=== PATIENT | female | born 1975 | race Caucasian/White ===

== ENCOUNTER 2016-07-14 20:12 | Emergency (ER) | payer SELFPAY ==
[2016-07-15] MEDS ORDERED: HYDROCODONE/ACETAMINOPHEN 5-325 MG 6 TAB/DSPK PO PRN (00:11)
--- NOTE | 2016-07-15 00:16 | ER Document Report ---
ED Extremity Problem, Upper - General Chief Complaint: Shoulder Pain Stated Complaint: SHOULDER PAIN,LEFT HAND NUMBNESS Time seen by provider: 00:10 Notes: Patient is a 40-year-old left-handed female that comes emergency department for chief complaint of pain in the left shoulder in her upper back behind her shoulder since yesterday, she also states that she gets tingling sensation in the first second and third digits of her left hand intermittently with some pains along her arm. She denies any chest pain, shortness of breath, she denies any impact injury, however she states that she lifts heavy boxes at work on occasion and has done so over the past 6 days. Patient denies any daily medications, she states that ibuprofen did help earlier today but wore off before her shift was done. TRAVEL OUTSIDE OF THE [place] IN LAST 30 DAYS: No - Related Data Allergies/Adverse Reactions: No Known Allergies Allergy (Verified 07/10/16 15:29) Past Medical History - General Information source: Patient - Social History Smoking Status: Never Smoker Frequency of alcohol use: None Drug Abuse: None Lives with: Family Family History: Reviewed & Not Pertinent, DM, Other - DVT Patient has suicidal ideation: No Patient has homicidal ideation: No - Past Medical History Cardiac Medical History: Reports: Hx DVT, Hx Pulmonary Embolism Neurological Medical History: Denies: Hx Seizures Skin Medical History: Denies Hx Eczema, Denies Hx MRSA Past Surgical History: Reports: Hx Section, Hx Cholecystectomy - Immunizations Hx Diphtheria, Pertussis, Tetanus Vaccination: Yes Review of Systems - Review of Systems Constitutional: No symptoms reported EENT: No symptoms reported Cardiovascular: No symptoms reported Respiratory: No symptoms reported Gastrointestinal: No symptoms reported Genitourinary: No symptoms reported Female Genitourinary: No symptoms reported Musculoskeletal: See HPI Skin: No symptoms reported Hematologic/Lymphatic: No symptoms reported Neurological/Psychological: No symptoms reported Physical Exam - Vital signs Vitals: Temp Pulse Resp BP Pulse Ox 97.8 F 79 14 121/72 97 07/14/16 20:38 07/14/16 20:38 07/14/16 20:38 07/14/16 20:38 07/14/16 20:38 Interpretation: Normal - General General appearance: Appears well, Alert In distress: None - Patient in no distress unless she moves her left shoulder, moves the shoulder with some pain - HEENT Head: Normocephalic, Atraumatic Eyes: Normal Extraocular movements intact: Yes Eyelashes: Normal Pupils: PERRL Mouth/Lips: Normal Mucous membranes: Normal Pharynx: Normal Neck: Normal - Respiratory Respiratory status: No respiratory distress Chest status: Nontender Breath sounds: Normal. No: Decreased air movement, Wheezing Chest palpation: Normal - Cardiovascular Rhythm: Regular Heart sounds: Normal auscultation Murmur: No - Abdominal Inspection: Normal Distension: No distension Bowel sounds: Normal Tenderness: Nontender Organomegaly: No organomegaly - Back Back: Normal, Nontender - Extremities General upper extremity: Other - Tender over the supraspinatus and left trapezius muscles, somewhat limited abduction of the shoulder to about 100 before becomes difficult. Positive Phalen sign in the left hand. Normal examination of the upper extremities otherwise General lower extremity: Normal inspection, Nontender, Normal color, Normal ROM , Normal temperature, Normal weight bearing. No: Rex's sign - Neurological Neuro grossly intact: Yes Cognition: Normal Orientation: AAOx4 [place] Coma Scale Eye Opening: Spontaneous Rm Coma Scale Verbal: Oriented Rm Coma Scale Motor: Obeys Commands Rm Coma Scale Total: 15 Speech: Normal Motor strength normal: LUE, RUE, LLE, RLE Sensory: Normal - Psychological Associated symptoms: Normal affect, Normal mood - Skin Skin Temperature: Warm Skin Moisture: Dry Skin Color: Normal Course - Re-evaluation Re-evalutation: Patient with very specific shoulder tenderness, appears to have slight shoulder impingement on the left side, appears to have trapezius muscle spasm and supraspinatus pain, also appears to have a component of carpal tunnel with positive Phalen sign. Discussed all these findings with patient. Patient declines an x-ray of her shoulder, will treat with naproxen to help her through the workday, Valium for the muscle spasm, referring to orthopedics for additional treatment and management if symptoms persist. Patient states satisfaction and agreement with plan. - Vital Signs Vital signs: Temp Pulse Resp BP Pulse Ox 97.7 F 70 16 113/70 97 07/15/16 00:40 07/15/16 00:40 07/15/16 00:40 07/15/16 00:40 07/15/16 00:40 Discharge - Discharge Clinical Impression: Left shoulder pain Qualifiers: Chronicity: acute Qualified Code(s): M25.512 - Pain in left shoulder Carpal tunnel syndrome Qualifiers: Laterality: left Qualified Code(s): G56.02 - Carpal tunnel syndrome, left upper limb Condition: Stable Disposition: HOME, SELF-CARE Additional Instructions: Your exam is showing shoulder impingement, strain/spasm of the trapezius muscle of the shoulder, and also indicates carpal tunnel syndrome. I recommended icing both your shoulder (at the top of your arm, not on your back ) and wrist 3-4 times a day over the next couple of days, take the naproxen anti -inflammatory, take Valium if needed for your shoulder spasm. Rest. Follow-up with orthopedics if needed for your shoulder/wrist. Return to emergency department for concerning symptoms. Prescriptions: Diazepam [Valium 5 mg Tablet] 1 - 2 tab PO TID PRN #15 tablet PRN Reason: Naproxen 500 mg PO BID #20 tablet Forms: Return to Work Referrals: MISAEL MENDEZ MD [ACTIVE STAFF] - Follow up as needed
[2016-07-15 00:50] VITALS: BP 113/70
== END 2016-07-15 00:51 | disposition home or self-care (01) ==
LOC: ER 20:12
DX: G56.02 Carpal tunnel syndrome, left upper limb (principal); M25.512 Pain in left shoulder; M79.642 Pain in left hand
CPT/HCPCS: 99283

== ENCOUNTER 2017-12-11 20:32 | Emergency (ER) | payer SELFPAY ==
[2017-12-11] MEDS ORDERED: LIDOCAINE 1% INJ-PF (10 MG/ML) 30 ML SDV INJ ONE (21:34)
[2017-12-11] MEDS ORDERED: IBUPROFEN 800 MG TABLET PO ONE (21:42)
[2017-12-11] MEDS ORDERED: DIPH/PERTUSS(ACELL)/TETANUS VAC/PF 0.5 ML SYR (>=10YO) IM ONE (21:43)
--- NOTE | 2017-12-11 21:48 | ER Document Report ---
ED Hand/Wrist Injury - General Chief Complaint: Finger Injury Stated Complaint: FINGER LACERATION Time Seen by Provider: 12/11/17 20:57 Mode of Arrival: Ambulatory Information source: Patient Notes: 42-year-old female presents to ED for complaint of a laceration to the left middle finger. She states the laceration occurred when she was trying to close a pocket knife around 6:00. She states there was a drug safety assistant that lives nearby and he wrapped it in gauze and tape. She is alert and oriented speaking in full sentences, respirations are regular and unlabored. She is walking with a even steady gait. She states her only past medical history is blood clots in her lungs and heart about 7 years ago when she was on blood thinners at that time. She states she has not been on blood thinners in a while. TRAVEL OUTSIDE OF THE [place] IN LAST 30 DAYS: No - HPI Injury to: Middle finger - Left Onset: This afternoon Where: Home, Indoors Timing: Still present Quality of pain: Achy Severity: Mild Pain Level: 2 Context: Laceration - Related Data Allergies/Adverse Reactions: No Known Allergies Allergy (Verified 07/10/16 15:29) Past Medical History - General Information source: Patient - Social History Smoking Status: Current Every Day Smoker Cigarette use (# per day): Yes - Half pack a day Chew tobacco use (# tins/day): No Smoking Education Provided: Yes - 4 minutes Frequency of alcohol use: None Drug Abuse: None Occupation: None Lives with: Other - Lives with her child's father and his girlfriend and children Family History: Reviewed & Not Pertinent, DM, Other - DVT Patient has suicidal ideation: No Patient has homicidal ideation: No - Past Medical History Cardiac Medical History: Reports: Hx Pulmonary Embolism - States she had a pulmonary emboli and a clot in her heart about 7 years ago Pulmonary Medical History: Reports: None EENT Medical History: Reports: None Neurological Medical History: Reports: None Endocrine Medical History: Reports: None Renal/ Medical History: Reports: None Malignancy Medical History: Reports: None GI Medical History: Reports: None Musculoskeltal Medical History: Reports None Skin Medical History: Reports None Psychiatric Medical History: Reports: None Traumatic Medical History: Reports: None Infectious Medical History: Reports: None Past Surgical History: Reports: Hx Section, Hx Cholecystectomy - Immunizations Hx Diphtheria, Pertussis, Tetanus Vaccination: Yes Review of Systems - Review of Systems Constitutional: No symptoms reported EENT: No symptoms reported Cardiovascular: No symptoms reported Respiratory: No symptoms reported Gastrointestinal: No symptoms reported Genitourinary: No symptoms reported Female Genitourinary: No symptoms reported Musculoskeletal: No symptoms reported Skin: Other - laceration left index finger while closing a pocket knife Hematologic/Lymphatic: No symptoms reported Neurological/Psychological: No symptoms reported -: Yes All other systems reviewed and negative Physical Exam - Vital signs Vitals: Temp Pulse Resp BP Pulse Ox 99.0 F 89 20 128/80 H 96 12/11/17 20:40 12/11/17 20:40 12/11/17 20:40 12/11/17 20:40 12/11/17 20:40 Interpretation: Normal - General General appearance: Appears well, Alert - HEENT Head: Normocephalic, Atraumatic Eyes: Normal Pupils: PERRL - Respiratory Respiratory status: No respiratory distress Chest status: Nontender Breath sounds: Normal Chest palpation: Normal - Cardiovascular Rhythm: Regular Heart sounds: Normal auscultation Murmur: No - Abdominal Inspection: Normal Distension: No distension Bowel sounds: Normal Tenderness: Nontender Organomegaly: No organomegaly - Back Back: Normal, Nontender - Extremities General upper extremity: Normal ROM, Normal temperature General lower extremity: Normal inspection, Nontender, Normal color, Normal ROM , Normal temperature, Normal weight bearing. No: Rex's sign Hand: Tender, Laceration - left middle finger, No evidence of human bite, No evidence of FB. No: Abrasion, Deformity, Dislocation, Ecchymosis, Instability, Nail injury, Swelling, Tendon deficit - Neurological Neuro grossly intact: Yes Cognition: Normal Orientation: AAOx4 Rm Coma Scale Eye Opening: Spontaneous [place] Coma Scale Verbal: Oriented Rm Coma Scale Motor: Obeys Commands Rm Coma Scale Total: 15 Speech: Normal Motor strength normal: LUE, RUE, LLE, RLE Sensory: Normal - Psychological Associated symptoms: Normal affect, Normal mood - Skin Skin Temperature: Warm Skin Moisture: Dry Skin Color: Normal Course - Vital Signs Vital signs: Temp Pulse Resp BP Pulse Ox 99.0 F 89 20 128/80 H 96 12/11/17 20:40 12/11/17 20:40 12/11/17 20:40 12/11/17 20:40 12/11/17 20:40 Procedures - Immobilization Left Finger 3rd digit Time completed: 22:15 Pre-Proc Neuro Vasc Exam: Normal Immobilizer type: Finger protection Performed by: PCT Post-Proc Neuro Vasc Exam: Normal Alignment checked and good: Yes - Laceration/Wound Repair Left Finger 3rd digit Time completed: 22:14 Wound length (cm): 1.5 Wound's Depth, Shape: Superficial, Linear Laceration pre-procedure: Sterile PPE donned, Sterile drapes applied Anesthetic type: 1% Lidocaine Volume Anesthetic (mLs): 4 Wound explored: No foreign body removed, Contaminated Irrigated w/ Saline (mLs): 300 Wound Repaired With: Sutures Suture Size/Type: 5:0, Ethilon Number of Sutures: 5 Layer Closure?: No Post-procedure wound care: Sterile dressing applied, Splint applied Post-procedure NV exam normal: Yes Complications: No Discharge - Discharge Clinical Impression: Laceration of left middle finger w/o foreign body w/o damage to nail Qualifiers: Encounter type: initial encounter Qualified Code(s): S61.213A - Laceration without foreign body of left middle finger without damage to nail, initial encounter Condition: Stable Disposition: HOME, SELF-CARE Instructions: Family Physicians / Practices, Use of Otky-Ipv-Gngjlfo Ibuprofen ([facility]) Additional Instructions: Hand Laceration A laceration on the hand can present special problems. It may be difficult to keep the wound dry. Motion of the fingers can disturb the healing edges. Your work may involve exposure to damaging chemicals or water. Keep the wound clean and dry. If you can't keep the cut dry, undisturbed, and free of chemical exposure, please discuss this with the doctor. If any water or chemical gets onto the dressing, remove it, blot the wound dry, then apply a fresh bandage. Dressings should be changed every day. If you feel the stitches pulling as you move the hand, a splint or other form of protection is needed. If any signs of infection occur (swelling, redness, increasing tenderness, red streaks, tender lumps in the armpit, or fever), see the doctor immediately. SOAP CLEANSING: Gently wash the wound daily using a mild soap (like Ivory, Phisoderm, Neutrogena). Use warm water, rubbing gently until all debris, ooze, and crusting have been washed from the wound. Allow to dry briefly (about 10 minutes) after cleaning. Repeat this cleansing at least three times a day for the first two days and then once or twice a day. ANTIBIOTIC OINTMENT PROTECTION: Your wounds are such that dressing them is not practical or optional. After cleansing, you should apply a thin coating of antibiotic ointment ( Bacitracin, not Neosporin) to the wounds at least three times daily. This lessens infection risk, and may decrease the amount of scarring. Use a q-tip or dull butter knife, not your finger, to apply this ointment. Any debris or ooze which builds up in the ointment should be gently rubbed off with a sterile gauze pad. Harder crusting may need to be gently scrubbed off with a clean wash cloth with soap and warm water, perhaps applying a warm, wet wash cloth to the wound for ten minutes first. Development of redness, severe itching, or blistering may mean allergy to the ointment. See the doctor. TETANUS IMMUNIZATION GIVEN: You have been given an immunization against tetanus. Please record this in your records. In general, a booster is needed only once every 10 years. The tetanus shot protects against tetanus or "lockjaw," which is a complication of certain wound infections (the tetanus shot cannot protect against the actual infection). The immunization site may become warm and red due to local reaction. If this occurs, apply warm compresses and take aspirin or ibuprofen to reduce inflammation and discomfort. Return for evaluation if the reaction becomes severe. Acetaminophen Acetaminophen may be taken for pain relief or fever control. It's much safer than aspirin, offering a wider range of "safe" dosages. It is safe during . Some brand names are Tylenol, Panadol, Datril, Anacin 3, Tempra, and Liquiprin. Acetaminophen can be repeated every four hours. The following are maximum recommended dosages: WEIGHT Dose Drops Elixir Chewable( 80mg) (LBS.) drprs=droppers tsp=teaspoon 6 40 mg .4 ml (1/2) 6-11 80 mg .8 ml (full) 1/2 tsp 1 tab 12-16 120 mg 1 1/2 drprs 3/4 tsp 1 1/2 tabs 17-23 160 mg 2 drprs 1 tsp 2 tabs 24-30 240 mg 3 drprs 1 1/2 tsp 3 tabs 30-35 320 mg 2 tsp 4 tabs 36-41 360 mg 2 1/4 tsp 4 1 /2 tabs 42-47 400 mg 2 1/2 tsp 5 tabs 48-53 480 mg 3 tsp 6 tabs 54-59 520 mg 3 1/4 tsp 6 1 /2 tabs 60-64 560 mg 3 1/2 tsp 7 tabs 65-70 600 mg 3 3/4 tsp 7 1 /2 tabs 71-76 640 mg 4 tsp 8 tabs 77-82 720 mg 4 1/2 tsp 9 tabs 83-88 800 mg 5 tsp 10 tabs >89 pounds or adults 650 mg to 900 mg Acetaminophen can be repeated every four hours. Maximum daily dose not to exceed 4000 mg. These maximum recommended dosages are slightly higher than the dosages written on the product container, but these dosages are very safe and well below the toxic dosage for acetaminophen. FOLLOW-UP CARE: Please return in ___3__ days for an infection check and dressing change. Your sutures should be removed in ___9__ days. To facilitate a timely removal of your sutures, you may return to the Emergency Department at [facility]. You do not need to call for an appointment, but the best time to come in for suture removal is early in the morning. If you have been referred to another physician for follow-up care, call that physicians office for an appointment as you were instructed. If you experience a significant change in your laceration, or if you are concerned there may be an infection (swelling, redness, drainage, increasing tenderness, red streaks, tender lumps in the armpit or groin above the laceration, or fever) , return to the Emergency Department immediately re-evaluation. Forms: Elevated Blood Pressure, Smoking Cessation Education
[2017-12-11 22:34] VITALS: BP 108/65
== END 2017-12-11 22:33 | disposition home or self-care (01) ==
LOC: ER 20:32
PROC: 0HQGXZZ Repair Left Hand Skin, External Approach (ICD-10-PCS; principal; 2017-12-11)
DX: S61.213A Laceration without foreign body of left middle finger without damage to nail, initial encounter (principal); W26.0XXA Contact with knife, initial encounter; F17.210 Nicotine dependence, cigarettes, uncomplicated
CPT/HCPCS: 99282; 90471; 90715; 12001; J3490

== ENCOUNTER 2018-03-21 20:15 | Inpatient (IN) | payer MEDICAID ==
[2018-03-21 20:43] LABS: ABSOLUTE EOSINOPHILS # (AUTO) 0.4 10^3/uL (0.0-0.6); ABSOLUTE LYMPHOCYTES (AUTO) 2.1 10^3/uL (0.5-4.7); ABSOLUTE MONOCYTES (AUTO) 0.4 10^3/uL (0.1-1.4); ABSOLUTE NEUT (AUTO) 5.6 10^3/uL (1.7-8.2); BASOPHILS % (AUTO) 0.5 % (0-2); HEMATOCRIT 39.5 % (36.0-47.0); HEMOGLOBIN 13.5 g/dL (12.0-15.5); MEAN CORPUSCULAR HEMOGLOBIN 33.4 pg (27.0-33.4); MEAN CORPUSCULAR HGB CONC 34.2 g/dL (32.0-36.0); MEAN CORPUSCULAR VOLUME 98 fl (80-97); MONOCYTES % (AUTO) 4.9 % (3-13); PLATELET COUNT 167 10^3/uL (150-450); RED BLOOD COUNT 4.05 10^6/uL (3.72-5.28); RED CELL DISTRIBUTION WIDTH 13.3 % (11.5-14.0); SEGMENTED NEUTROPHILS % (AUTO) 65.6 % (42-78); TOTAL CELLS COUNTED % (AUTO) 100 %; WHITE BLOOD COUNT 8.6 10^3/uL (4.0-10.5)
--- NOTE | 2018-03-21 21:00 | RADIOLOGY REPORT (SQ) ---
EXAM DESCRIPTION: CHEST SINGLE VIEW COMPLETED DATE/TIME: 03/21/2018 8:51 pm REASON FOR STUDY: sob, cp COMPARISON: 12/19/2014. EXAM PARAMETERS: NUMBER OF VIEWS: One view. TECHNIQUE: Single frontal radiographic view of the chest acquired. RADIATION DOSE: NA LIMITATIONS: None. FINDINGS: LUNGS AND PLEURA: No opacities, masses or pneumothorax. No pleural effusion. MEDIASTINUM AND HILAR STRUCTURES: No masses. Contour normal. HEART AND VASCULAR STRUCTURES: Heart normal in size. Normal vasculature. BONES: No acute findings. HARDWARE: None in the chest. OTHER: No other significant finding. IMPRESSION: NO ACUTE RADIOGRAPHIC FINDING IN THE CHEST. TECHNICAL DOCUMENTATION: JOB ID: [id number] Sensitive Object- All Rights Reserved Reading location - IP/workstation name: [email or web address]
[2018-03-21 21:07] LABS: ANION GAP 7 (5-19); BLOOD UREA NITROGEN 12 mg/dL (7-20); CALCIUM 8.7 mg/dL (8.4-10.2); CARBON DIOXIDE 25 mmol/L (22-30); CHLORIDE 108 mmol/L (98-107); GLUCOSE 91 mg/dL (75-110); POTASSIUM 4.2 mmol/L (3.6-5.0); SODIUM 139.7 mmol/L (137-145)
[2018-03-21] MEDS ORDERED: ASPIRIN 81 MG TABLET, CHEWABLE PO ONE (22:34)
--- NOTE | 2018-03-21 22:35 | ER Document Report ---
ED General - General Chief Complaint: Shortness Of Breath Stated Complaint: SHORTNESS OF BREATH/CHEST PAIN Time Seen by Provider: 03/21/18 20:23 Notes: Patient is a 42 year old female with a past medical history of morbid obesity, remote history of an acute pulmonary embolus approximately 6 or 7 years ago, not currently on any form of anticoagulation who presents with a relatively abrupt onset of chest pain and shortness of breath approximately 2 hours prior to arrival. Patient describes the chest pain as a stabbing, aching pain to her bilateral chest wall. Nothing improves or worsens this pain. She notes some associated shortness of breath as well as mild nausea. She states this feels "exactly the same as when I had a pulmonary embolus in the past". She has not contacted her primary care doctor regarding today's concerns. She denies any fever or constitutional symptoms. No syncope. No history of known coronary artery disease. TRAVEL OUTSIDE OF THE [place] IN LAST 30 DAYS: No - Related Data Allergies/Adverse Reactions: No Known Allergies Allergy (Verified 03/22/18 03:23) Past Medical History - General Information source: Patient - Social History Smoking Status: Current Every Day Smoker Frequency of alcohol use: None Drug Abuse: None Lives with: Spouse/Significant other Family History: Reviewed & Not Pertinent, DM, Other - DVT Patient has suicidal ideation: No Patient has homicidal ideation: No - Past Medical History Cardiac Medical History: Reports: Hx Pulmonary Embolism - States she had a pulmonary emboli and a clot in her heart about 7 years ago Renal/ Medical History: Denies: Hx Peritoneal Dialysis Past Surgical History: Reports: Hx Section, Hx Cholecystectomy - Immunizations Hx Diphtheria, Pertussis, Tetanus Vaccination: Yes Review of Systems - Review of Systems Notes: Constitutional: Negative for fever. HENT: Negative for sore throat. Eyes: Negative for visual changes. Cardiovascular: Positive for chest pain. Respiratory: Positive for shortness of breath. Gastrointestinal: Negative for abdominal pain, vomiting or diarrhea. Genitourinary: Negative for dysuria. Musculoskeletal: Negative for back pain. Skin: Negative for rash. Neurological: Negative for headaches, weakness or numbness. 10 point ROS negative except as marked above and in HPI. Physical Exam - Vital signs Vitals: Temp Pulse Resp BP Pulse Ox 98.1 F 94 20 102/69 98 03/21/18 20:24 03/21/18 20:24 03/21/18 20:24 03/21/18 20:24 03/21/18 20:24 Interpretation: Normal Notes: PHYSICAL EXAMINATION: GENERAL: Well-appearing, well-nourished and in no acute distress. Morbidly obese HEAD: Atraumatic, normocephalic. EYES: Pupils equal round and reactive to light, extraocular movements intact, sclera anicteric, conjunctiva are normal. ENT: nares patent, oropharynx clear without exudates. Moist mucous membranes. NECK: Normal range of motion, supple without lymphadenopathy LUNGS: Breath sounds clear to auscultation bilaterally and equal. No wheezes rales or rhonchi. HEART: Regular rate and rhythm without murmurs ABDOMEN: Soft, morbidly obese abdomen, nontender, normoactive bowel sounds. No guarding, no rebound. No masses appreciated. EXTREMITIES: Normal range of motion, no pitting or edema. No cyanosis. NEUROLOGICAL: No focal neurological deficits. Moves all extremities spontaneously and on command. PSYCH: Normal mood, normal affect. SKIN: Warm, Dry, normal turgor, no rashes or lesions noted. Course - Re-evaluation Re-evalutation: 03/21/18 22:32 Patient presents with acute onset of chest pain with some moderate associated shortness of breath. States that her symptoms have actually improved dramatically and currently denies any ongoing symptoms of any kind. Her initial vitals do not show any tachycardia, hypotension or hypoxemia. She has does have a history of DVT and pulmonary embolus in the past. Given this prior history of d-dimer was sent which did come back markedly elevated at 14. Will proceed with CTA of the chest to further evaluate. Patient's troponin is also noted to be in the indeterminate range at 0.077 worrisome for possible cardiac strain in setting of PE versus possible independent coronary event. Patient has been given a dose of aspirin. Awaiting CT of the chest. She remained stable. 03/22/18 00:01 Patient is found to have multiple acute pulmonary emboli, remains without hypoxia, hypotension or tachycardia. Repeat troponin pending. Will initiate Lovenox at a weight-based dosing. 03/22/18 01:23 Repeat troponin with minimal increase. Patient remains within normal limits, heart rate 77, blood pressure 108 and 77, saturating 96% on air. I discussed with Dr. Sewell who is excepted the patient for admission. - Vital Signs Vital signs: Temp Pulse Resp BP Pulse Ox 98.1 F 94 19 109/75 100 03/21/18 20:24 03/21/18 20:24 03/21/18 22:07 03/21/18 22:07 03/21/18 22:07 - Laboratory Result Diagrams: 03/21/18 20:33 03/21/18 20:33 Laboratory results interpreted by me: 03/21/18 03/21/18 03/21/18 20:33 20:33 20:33 MCV 98 H D-Dimer 14.67 H Chloride 108 H - Diagnostic Test Radiology reviewed: Reports reviewed - EKG Interpretation by Me Additional EKG results interpreted by me: 03/22/18 03:40 Sinus rhythm. Rate 83. No ST elevations or depressions. QTC is 414. Discharge - Discharge Clinical Impression: Multiple pulmonary emboli, Shortness of breath Chest pain Qualifiers: Chest pain type: unspecified Qualified Code(s): R07.9 - Chest pain, unspecified Condition: Fair Disposition: ADMITTED OBSERVATION Admitting Provider: Hospitalist Unit Admitted: Telemetry
--- NOTE | 2018-03-21 22:50 | EKG REPORT ---
SEVERITY:- NORMAL ECG - SINUS RHYTHM NONSPECIFIC ST-T CHANGES- INFERIOR LEADS : Confirmed by: Dewey Stanley MD 21-Mar-2018 22:49:34
[2018-03-21] MEDS ORDERED: ENOXAPARIN SODIUM INJ 150 MG/1 ML DISP.SYRIN SUBCUT SCH (23:45)
--- NOTE | 2018-03-22 00:03 | RADIOLOGY REPORT (SQ) ---
EXAM DESCRIPTION: CT CHEST ANGIOGRAPHY WITHOUT THEN WITH IV CONTRAST CLINICAL HISTORY: 42 years, Female, eval pe. CP,SOB D-DIMER 14.67 COMPARISON: None. TECHNIQUE: Images stored on PACS. All CT scanners at this facility use dose modulation, iterative reconstruction, and/or weight based dosing when appropriate to reduce radiation dose to as low as reasonably achievable (ALARA). [facility]: Dose Right [facility]: CareDose [facility]: Dose Right [facility]: Teradose 4D [facility]: Smaato LIMITATIONS: None. FINDINGS: PROCEDURE: CT chest angiography with contrast CLINICAL HISTORY: 42 years Female eval pe. CP,SOB D-DIMER 14.67 COMPLETED DATE/TME: 03/21/2018 22:31 COMPARISON: 12/19/2014. TECHNIQUE: Contiguous axial images were obtained through the chest during the infusion of IV contrast. Reformatted images obtained. MIP reformatted images obtained. This exam was performed according to our department optimization program which includes automated exposure control, adjustment of the mA and/or kv according to patient size and/or use of iterative reconstruction technique. FINDINGS: There is a large pulmonary embolus at the level of the distal main pulmonary artery with extensive embolus extending into the left main pulmonary artery lobar and segmental branches to the left upper and lower lobe. Subsegmental emboli are also present. There is lobar segmental and subsegmental embolus to the right middle and lower lobe. Small amount of segmental and subsegmental embolus to the right upper lobe. There is flattening of the interventricular septum. The pulmonary artery is slightly more prominent than the aorta. No reflux of contrast is present into the IVC. No pericardial or pleural effusion. No significant thoracic adenopathy. There are numerous intrafissural lymph nodes in the anterior right chest similar to the previous study. IMPRESSION: Extensive pulmonary embolus with a large embolus across the bifurcation of the right and left pulmonary arteries extending into the left main pulmonary artery, lobar segmental and subsegmental branches There is thrombus in the interlobar artery and the lobar branches to the right lower and middle lobes as well as in segmental and subsegmental branches to the right lower and upper lobe Flattening of the interventricular septum and mild prominence of the pulmonary artery which may reflect early right heart strain Dr. Conklin was called and notified of the findings at 11:00 PM central time. Intrafissural lymph nodes as described
[2018-03-22] MEDS ORDERED: NORMAL SALINE 1000 ML 1,000 ML IV PRN (00:31)
[2018-03-22] MEDS ORDERED: PROMETHAZINE HCL INJ 25 MG/1 ML VIAL IV PRN (02:14)
[2018-03-22] MEDS ORDERED: PROMETHAZINE HCL 25 MG TABLET PO PRN (02:14)
[2018-03-22] MEDS ORDERED: ACETAMINOPHEN 325 MG TABLET PO PRN (02:14)
[2018-03-22] MEDS ORDERED: MAG HYDROX/AL HYDROX/SIMETH SUSP 30 ML UDCUP PO PRN (02:14)
[2018-03-22] MEDS ORDERED: IPRATROPIUM/ALBUTEROL 0.5-2.5 MG/3 ML AMPUL NEB PRN (02:14)
--- NOTE | 2018-03-22 03:31 | PDOC H&P ---
History of Present Illness Admission Date/PCP: 03/22/18 01:49 None Patient complains of: SOB History of Present Illness: FLORA IBRAHIM is a 42 year old female who comes to the emergency department after did not feel good since early Thursday, she was feeling some chest tightness and headache, felt tired and went to sleep. By the evening when she got up he had a severe shortness of breath and chest tightness, denies wheezing , coughing, phlegm, fever, chills, nausea, vomiting. Patient has history of pulmonary embolism 7 years ago in [place], tells me that she had also a blood clot in her heart, she was on Coumadin for about a year but he started producing her rash and she stopped taking it. No other anticoagulation was given to her. CTA shows extensive pulmonary embolus with a large embolus across the bifurcation on the right and left pulmonary arteries extending into the left main pulmonary artery, lobar segmental and subsegmental branches. Patient has a good oxygen saturation and is not in respiratory distress. Lovenox 150 mg given. Not on nasal cannula. Past Medical History Cardiac Medical History: Reports: Pulmonary Embolism - States she had a pulmonary emboli and a clot in her heart about 7 years ago Past Surgical History Past Surgical History: Reports: Section, Cholecystectomy Social History Smoking Status: Current Every Day Smoker Cigarettes Packs Per Day: 0.5 Frequency of Alcohol Use: None Hx Recreational Drug Use: No Hx Prescription Drug Abuse: No Past Social History Note: As for her daughter, daughter's father and girlfriend Family History Family History: Reviewed & Not Pertinent, DM, Other - DVT Family History: Father alive on his 60s with history of diabetes mellitus. Mother at 37 years old, had a history of blood clots and brain aneurysm. Sister with history of DVT Parental Family History Reviewed: Yes - As Above Children Family History Reviewed: NA Sibling(s) Family History Reviewed.: NA Medication/Allergy Home Medications: Prednisone 10 mg PO ASDIR PRN #21 tablet 04/04/16 Triamcinolone Acetonide 15 gm TP Q4 #1 cream.gm. 04/04/16 Diazepam [Valium 5 mg Tablet] 1 - 2 tab PO TID PRN #15 tablet 07/15/16 Naproxen 500 mg PO BID #20 tablet 07/15/16 Allergies/Adverse Reactions: No Known Allergies Allergy (Verified 03/22/18 03:23) Review of Systems Review of Systems: As outlined in the HPI, others negative Physical Exam Vital Signs: Temp Pulse Resp BP Pulse Ox 98.1 F 94 19 109/75 100 03/21/18 20:24 03/21/18 20:24 03/21/18 22:07 03/21/18 22:07 03/21/18 22:07 Intake & Output 03/20/18 03/21/18 03/22/18 06:59 06:59 06:59 Intake Total 1000 Balance 1000 Additional comments: General appearance: Well-developed, morbid obese, alert and cooperative, and appears to be in no acute distress Head: Normocephalic Eyes: PEERL, EOMI, vision is grossly intact. Ears: External auditory canal and tympanic membranes clear, hearing grossly intact. Nose: No nasal discharge. Throat: Oral cavity and pharynx normal. No inflammation, swelling, exudate or lesions. Neck: Neck supple, nontender without lymphadenopathy, masses or thyromegaly. Cardiac: Normal S1 and S2. No S3, S4 or murmurs. Rhythm is regular. There is no peripheral edema, cyanosis or pallor. Extremities are warm and well perfused. Capillary refill is less than 2 seconds. No carotid bruits. Lungs: basilar rales, no rhonchi, no wheezing, distant breath sounds. Not using accessory muscles. Abdomen: Positive bowel sounds. Soft. Nondistended, nontender. No guarding or rebound. No masses. Neurological: Cranial nerves II through XII grossly intact. Strength and sensation symmetric and intact throughout. Reflexes 2+ throughout. Skin: Skin normal color, texture and turgor with no lesions or eruptions, warm and dry. Psychiatric: The mental examination revealed the patient was oriented to person , place, and time. The patient was able to demonstrate good judgment on recent , without hallucinations, abnormal affect or abnormal behaviors. Results Laboratory Results: 03/21/18 03/21/18 03/21/18 20:33 20:33 20:33 WBC 8.6 RBC 4.05 Hgb 13.5 Hct 39.5 MCV 98 H MCH 33.4 MCHC 34.2 RDW 13.3 Plt Count 167 Seg Neutrophils % 65.6 Lymphocytes % 24.0 Monocytes % 4.9 Eosinophils % 5.0 Basophils % 0.5 Absolute Neutrophils 5.6 Absolute Lymphocytes 2.1 Absolute Monocytes 0.4 Absolute Eosinophils 0.4 Absolute Basophils 0.0 D-Dimer 14.67 H Sodium 139.7 Potassium 4.2 Chloride 108 H Carbon Dioxide 25 Anion Gap 7 BUN 12 Creatinine 1.02 Est GFR ( Amer) > 60 Est GFR (Non-Af Amer) > 60 Glucose 91 Calcium 8.7 Troponin I NT-Pro-B Natriuret Pep 03/21/18 03/21/18 03/22/18 20:33 20:33 00:25 WBC RBC Hgb Hct MCV MCH MCHC RDW Plt Count Seg Neutrophils % Lymphocytes % Monocytes % Eosinophils % Basophils % Absolute Neutrophils Absolute Lymphocytes Absolute Monocytes Absolute Eosinophils Absolute Basophils D-Dimer Sodium Potassium Chloride Carbon Dioxide Anion Gap BUN Creatinine Est GFR ( Amer) Est GFR (Non-Af Amer) Glucose Calcium Troponin I 0.077 0.115 NT-Pro-B Natriuret Pep 100 Impressions: Chest X-Ray 03/21/18 20:24 IMPRESSION: NO ACUTE RADIOGRAPHIC FINDING IN THE CHEST. Chest/Abdomen CTA 03/21/18 22:31 IMPRESSION: Extensive pulmonary embolus with a large embolus across the bifurcation of the right and left pulmonary arteries extending into the left main pulmonary artery, lobar segmental and subsegmental branches There is thrombus in the interlobar artery and the lobar branches to the right lower and middle lobes as well as in segmental and subsegmental branches to the right lower and upper lobe Flattening of the interventricular septum and mild prominence of the pulmonary artery which may reflect early right heart strain Dr. Conklin was called and notified of the findings at 11:00 PM central time. Intrafissural lymph nodes as described Assessment & Plan - Diagnosis (1) Pulmonary embolism Qualifiers: Chronicity: acute Acute cor pulmonale presence: with acute cor pulmonale Is this a current diagnosis for this admission?: Yes Plan: Patient comes with shortness of breath for 1 day. CTA shows extensive pulmonary embolism in the right and left long with early cor pulmonale and positive troponins. Has been started on 1 mg/kg of Lovenox and I will continue with this every [address] Ro has been consulted. We will keep the patient under telemetry monitoring. Fortunately patient seems to be a stable, with good oxygen saturation with no needs of oxygen. No hemoptysis. Place order for echocardiogram and lower extremities ultrasound. Has history of pulmonary embolism in the past on Coumadin which patient discontinued as was giving her rash. - Time Time Spent: 30 to 50 Minutes - Inpatient Certification Based on my medical assessment, after consideration of the patient's comorbidities, presenting symptoms, or acuity I expect that the services needed warrant INPATIENT care.: Yes I certify that my determination is in accordance with my understanding of Medicare's requirements for reasonable and necessary INPATIENT services [42 CFR 412.3e].: Yes Medical Necessity: Risk of Diagnosis Which Will Require Inpatient Eval/Care/ Monitoring
[2018-03-22 04:49] LABS: INTERNATIONAL RATION (INR) 1.08; PROTHROMBIN TIME 14.6 SEC (11.4-15.4)
[2018-03-22 04:50] LABS: PARTIAL THROMBOPLASTIN TIME 39.3 SEC (23.5-35.8)
[2018-03-22 05:15] LABS: APPEARANCE,URINE SLIGHTLY-CLOUDY; BILIRUBIN,URINE NEGATIVE (NEGATIVE); COLOR,URINE YELLOW; GLUCOSE, URINE NEGATIVE (NEGATIVE); KETONES,URINE NEGATIVE (NEGATIVE); LEUKOCYTE ESTERASE,URINE NEGATIVE (NEGATIVE); NITRITE,URINE NEGATIVE (NEGATIVE); PROTEIN,URINE NEGATIVE (NEGATIVE); URINE SPECIFIC GRAVITY > 1.060; UROBILINOGEN,URINE NEGATIVE mg/dL (<2.0)
[2018-03-22 08:33] LABS: URINE AMPHETAMINES SCREEN NEGATIVE; URINE BARBITURATES SCREEN NEGATIVE; URINE BENZODIAZEPINES SCREEN NEGATIVE; URINE COCAINE SCREEN NEGATIVE; URINE MARIJUANA (THC) SCREEN NEGATIVE; URINE METHADONE SCREEN NEGATIVE; URINE PHENCYCLIDINE SCREEN NEGATIVE
[2018-03-22] MEDS: ENOXAPARIN SODIUM INJ 150 MG/1 ML DISP.SYRIN SUBCUT SCH ×2 (09:17→21:20)
--- NOTE | 2018-03-22 15:42 | Progress Note ---
Provider Note Provider Note: This patient was admitted by my colleague Dr. Huynh this morning. The patient is resting quietly without any acute distress. She is awake, alert, and oriented x 3. No acute distress. Heart and lung sounds are distant due to body habitus. The abdomen is morbidly obese, soft, and non-tender. Bowel sounds are distant. I am unable to evaluate the abdomen due to the patient's body habitus. The patient has been admitted to a telemetry bed, and she has been started on anticoagulation. The patient will be kept on his home medications as possible. Vitals and labs are within normal limits.
[2018-03-22] MEDS: NICOTINE 14 MG/24 HR PATCH.TD24 TD SCH (19:21)
[2018-03-23 06:57] LABS: PHOSPHORUS 4.3 mg/dL (2.5-4.5)
[2018-03-23 06:58] LABS: ARTERIAL BLOOD BASE EXCESS -1.3 mmol/L; ARTERIAL BLOOD HCO3 22.1 mmol/L (20-24); ARTERIAL BLOOD O2 SATURATION 96.4 % (94-98); ARTERIAL BLOOD PCO2 33.1 mmHg (35-45); ARTERIAL BLOOD PH 7.44 (7.35-7.45); ARTERIAL BLOOD TOTAL CO2 23.1 mmol/L (21-25)
[2018-03-23 07:01] LABS: ARTERIAL BLOOD FIO2 ROOM AIR
[2018-03-23] MEDS: NICOTINE 14 MG/24 HR PATCH.TD24 TD SCH (09:28)
[2018-03-23] MEDS: ENOXAPARIN SODIUM INJ 150 MG/1 ML DISP.SYRIN SUBCUT SCH ×2 (09:29→22:20)
--- NOTE | 2018-03-23 14:12 | PDOC PROGRESS REPORT ---
Subjective Progress Note for:: 03/23/18 Subjective:: Patient admitted with difficulty breathing and shortness of breath. CTA shows extensive pulmonary embolus in the right and left lungs with early cor pulmonale and positive troponin patient is currently on Lovenox every 12 hours. Breathing appears to be relatively stable. Patient states that she was in Coumadin about 7 years ago for pulmonary embolism which had to be discontinued due to rash. No recent history of PE though. I believe she probably can be started on the new oral anticoagulants. Reason For Visit: PE Physical Exam Vital Signs: Temp Pulse Resp BP Pulse Ox 98.3 F 79 22 H 107/55 L 98 03/23/18 11:29 03/23/18 11:29 03/23/18 11:29 03/23/18 11:29 03/23/18 11:29 Intake & Output 03/22/18 03/23/18 03/24/18 06:59 06:59 06:59 Intake Total 1000 1079 657 Balance 1000 1079 657 Weight 158.2 kg 158.2 kg General appearance: PRESENT: no acute distress, morbidly obese Head exam: PRESENT: atraumatic, normocephalic Eye exam: PRESENT: conjunctiva pink, EOMI, PERRLA. ABSENT: scleral icterus Ear exam: PRESENT: normal external ear exam Mouth exam: PRESENT: moist, tongue midline Neck exam: ABSENT: carotid bruit, JVD, lymphadenopathy, thyromegaly Respiratory exam: PRESENT: clear to auscultation rufus. ABSENT: rales, rhonchi, wheezes Cardiovascular exam: PRESENT: RRR. ABSENT: diastolic murmur, rubs, systolic murmur Pulses: PRESENT: normal dorsalis pedis pul Vascular exam: PRESENT: normal capillary refill GI/Abdominal exam: PRESENT: normal bowel sounds, soft. ABSENT: distended, guarding, mass, organolmegaly, rebound, tenderness Rectal exam: PRESENT: deferred Extremities exam: PRESENT: full ROM. ABSENT: calf tenderness, clubbing, pedal edema Neurological exam: PRESENT: alert, awake, oriented to person, oriented to place , oriented to time, oriented to situation, CN II-XII grossly intact. ABSENT: motor sensory deficit Psychiatric exam: PRESENT: appropriate affect, normal mood. ABSENT: homicidal ideation, suicidal ideation Skin exam: PRESENT: dry, intact, warm. ABSENT: cyanosis, rash Results Laboratory Results: 03/23/18 03/23/18 06:17 06:45 Carbonic Acid 1.00 L HCO3/H2CO3 Ratio 22:1 ABG pH 7.44 ABG pCO2 33.1 L ABG pO2 81.0 ABG HCO3 22.1 ABG O2 Saturation 96.4 ABG Base Excess -1.3 FiO2 ROOM AIR Phosphorus 4.3 Magnesium 2.0 03/22/18 03/22/18 03/22/18 06:30 12:55 18:20 Troponin I 0.078 0.063 0.073 Impressions: Chest X-Ray 03/21/18 20:24 IMPRESSION: NO ACUTE RADIOGRAPHIC FINDING IN THE CHEST. Chest/Abdomen CTA 03/21/18 22:31 IMPRESSION: Extensive pulmonary embolus with a large embolus across the bifurcation of the right and left pulmonary arteries extending into the left main pulmonary artery, lobar segmental and subsegmental branches There is thrombus in the interlobar artery and the lobar branches to the right lower and middle lobes as well as in segmental and subsegmental branches to the right lower and upper lobe Flattening of the interventricular septum and mild prominence of the pulmonary artery which may reflect early right heart strain Dr. Conklin was called and notified of the findings at 11:00 PM central time. Intrafissural lymph nodes as described Assessment & Plan - Time Time Spent with patient: 15-24 minutes Medications reviewed and adjusted accordingly: Yes Anticipated discharge: Home Within: within 72 hours - Inpatient Certification Based on my medical assessment, after consideration of the patient's comorbidities, presenting symptoms, or acuity I expect that the services needed warrant INPATIENT care.: Yes Medical Necessity: Risk of Complication if Not Cared For in Hospital
--- NOTE | 2018-03-23 16:24 | RADIOLOGY REPORT (SQ) ---
EXAM DESCRIPTION: VENOUS BILATERAL LOWER COMPLETED DATE/TIME: 03/23/2018 4:06 pm REASON FOR STUDY: EVAL FOR DVT diffuse swelling both legs COMPARISON: None. TECHNIQUE: Dynamic and static castro scale and color images acquired of both lower extremity venous sy stems. Selected spectral images acquired with additional compression and augmentation maneuvers. Imag es stored on PACS. LIMITATIONS: None. FINDINGS: RIGHT LEG COMMON FEMORAL AND FEMORAL: Normal phasicity, compression and augmentation. No visualized echogenic m aterial on castro scale. No defects on color images. POPLITEAL: Normal compression and augmentation. No visualized echogenic material on castro scale. No de fects on color images. CALF VESSELS: Normal compression and augmentation. No visualized echogenic material on castro scale. No defects on color image. GSV AND SSV: Normal compression. No visualized echogenic material on castro scale. No defects on color images. ANY DEEP VENOUS INSUFFICIENCY: Not evaluated. ANY EVIDENCE OF POPLITEAL CYST: No. OTHER: No other significant finding. LEFT LEG COMMON FEMORAL AND FEMORAL: Normal phasicity, compression and augmentation. No visualized echogenic m aterial on castro scale. No defects on color images. POPLITEAL: Normal compression and augmentation. No visualized echogenic material on castro scale. No de fects on color images. CALF VESSELS: Normal compression and augmentation. No visualized echogenic material on castro scale. No defects on color images. GSV AND SSV: Normal compression. No visualized echogenic material on castro scale. No defects on color images. ANY DEEP VENOUS INSUFFICIENCY: Not evaluated. ANY EVIDENCE POPLITEAL CYST: No. OTHER: No other significant finding. IMPRESSION: NO EVIDENCE DVT OR SVT IN EITHER LEG. TECHNICAL DOCUMENTATION: JOB ID: [id number] [employer]- All Rights Reserved Reading location - IP/workstation name: [email or web address]
--- NOTE | 2018-03-23 17:17 | XCELERA REPORT ---
[address] [address] Transthoracic Echocardiogram Report Name: FLORA IBRAHIM Age: 42 yrs Gender: Female : 1975 Patient Status: Inpatient Patient Location: [address] [place] [address] Study Date: 03/23/2018 03:12 PM Height: 66 in Weight: 326 lb BSA: 2.5 m2 Procedure: A complete two-dimensional transthoracic echocardiogram was performed (2D, M-mode, spectral and color flow Doppler). The study was technically limited with all images being suboptimal in quality. Reason For Study: PE Ordering Physician: MARIA ALEJANDRA SMITH Performed By: ETTA Interpretation Summary The study was technically limited with all images being suboptimal in quality. The left ventricular ejection fraction is preserved. Consider additional methods to assess LVEF such as MUGA scan, CTA heart, cardiac MRI, KIARA, etc. if clinically indicated. The left ventricle is grossly normal size. There is mild concentric left ventricular hypertrophy. LV diastolic function could not be adequately assessed. Regional wall motion abnormalities cannot be excluded due to limited visualization. Right ventricular function cannot be assessed due to poor image quality. Right atrium not well visualized secondary to technical limitations Borderline left atrial enlargement. There is a trace amount of mitral regurgitation There is no mitral valve stenosis. No aortic regurgitation is present. There is no aortic valve stenosis The tricuspid valve is not well visualized secondary to technical limitations The pulmonic valve is not well visualized. The aortic root is not well visualized. The inferior vena cava was not well visualized There is no pericardial effusion. Consider alternative methods to evaluate LVEF such as MUGA scan, cardiac MRI, or cardiac CTA. MMode/2D Measurements & Calculations RVDd: 3.8 cm LVIDd: 4.3 cm FS: 26.4 % Ao root diam: 2.8 cm IVSd: 0.76 cm LVIDs: 3.2 cm EDV(Teich): 84.2 ml Ao root area: 6.1 cm2 LVPWd: 0.75 cm ESV(Teich): 40.5 ml LA dimension: 3.7 cm EF(Teich): 51.9 % LVOT diam: 1.9 cm LVOT area: 2.9 cm2 Doppler Measurements & Calculations MV E max jennifer: MV P1/2t max jennifer: PA V2 max: MV P1/2t-pr_phl: 61.7 cm/sec 70.0 cm/sec 92.3 cm/sec 70.7 msec MV A max jennifer: MV P1/2t: 70.7 msec PA max P.9 cm/sec MVA(P1/2t): 3.1 cm2 3.4 mmHg MV E/A: 1.2 MV dec slope: 290.0 cm/sec2 MV dec time: 0.26 sec Left Ventricle The left ventricle is grossly normal size. There is mild concentric left ventricular hypertrophy. The left ventricular ejection fraction is preserved. Consider additional methods to assess LVEF such as MUGA scan, CTA heart, cardiac MRI, KIARA, etc. if clinically indicated. LV diastolic function could not be adequately assessed. Regional wall motion abnormalities cannot be excluded due to limited visualization. Right Ventricle The right ventricle is grossly normal size. Right ventricular function cannot be assessed due to poor image quality. Atria Right atrium not well visualized secondary to technical limitations. Borderline left atrial enlargement. Interarterial septum not well visualized and not well dopplered. Cannot comment on ASD/PFO presence. Mitral Valve The mitral valve is not well visualized. There is no mitral valve stenosis. There is a trace amount of mitral regurgitation. Aortic Valve The aortic valve is not well visualized secondary to technical limitations. There is no aortic valve stenosis. No aortic regurgitation is present. Tricuspid Valve The tricuspid valve is not well visualized secondary to technical limitations. Pulmonic Valve The pulmonic valve is not well visualized. Great Vessels The aortic root is not well visualized. The inferior vena cava was not well visualized. Effusions There is no pericardial effusion. Incidental Findings Consider alternative methods to evaluate LVEF such as MUGA scan, cardiac MRI, or cardiac CTA. : MARIA ALEJANDRA SMITH > Po Esparza
[2018-03-24 04:43] LABS: HEMATOCRIT 37.9 % (36.0-47.0); MEAN CORPUSCULAR HEMOGLOBIN 33.9 pg (27.0-33.4); MEAN CORPUSCULAR HGB CONC 34.4 g/dL (32.0-36.0); MEAN CORPUSCULAR VOLUME 99 fl (80-97); PLATELET COUNT 146 10^3/uL (150-450); RED BLOOD COUNT 3.85 10^6/uL (3.72-5.28); RED CELL DISTRIBUTION WIDTH 13.2 % (11.5-14.0); WHITE BLOOD COUNT 7.9 10^3/uL (4.0-10.5)
[2018-03-24 09:12] LABS: APPEARANCE,URINE CLOUDY; BILIRUBIN,URINE NEGATIVE (NEGATIVE); CALCIUM OXALATE CRYSTALS,URINE RARE /HPF; COLOR,URINE YELLOW; GLUCOSE, URINE NEGATIVE (NEGATIVE); KETONES,URINE NEGATIVE (NEGATIVE); LEUKOCYTE ESTERASE,URINE TRACE (NEGATIVE); NITRITE,URINE NEGATIVE (NEGATIVE); PROTEIN,URINE NEGATIVE (NEGATIVE); URINE SPECIFIC GRAVITY 1.023
[2018-03-24] MEDS: ENOXAPARIN SODIUM INJ 150 MG/1 ML DISP.SYRIN SUBCUT SCH (09:18)
[2018-03-24] MEDS: NICOTINE 14 MG/24 HR PATCH.TD24 TD SCH (09:20)
--- NOTE | 2018-03-24 11:22 | PDOC DISCHARGE SUMMARY ---
General - Admit/Disc Date/PCP Admission Date/Primary Care Provider: 03/22/18 01:49 Discharge Date: 03/24/18 - Discharge Diagnosis (1) Multiple pulmonary emboli Is this a current diagnosis for this admission?: Yes (2) Shortness of breath Is this a current diagnosis for this admission?: Yes - Additional Information Discharge Activity: Activity As Tolerated Prescriptions: Apixaban [Eliquis 5 mg Tablet] 10 mg PO Q12 #60 tablet Home Medications: Apixaban [Eliquis 5 mg Tablet] 10 mg PO Q12 #60 tablet 03/24/18 Nicotine [Nicoderm 14 mg/24 Hr Transdermal Patch] 1 each TD DAILY patch.[id number] History of Present Illness History of Present Illness: FLORA IBRAHIM is a 42 year old female who comes to the emergency department after did not feel good since early Thursday, she was feeling some chest tightness and headache, felt tired and went to sleep. By the evening when she got up he had a severe shortness of breath and chest tightness, denies wheezing, coughing, phlegm, fever, chills, nausea, vomiting. Patient has history of pulmonary embolism 7 years ago in [place], tells me that she had also a blood clot in her heart, she was on Coumadin for about a year but he started producing her rash and she stopped taking it. No other anticoagulation was given to her. CTA shows extensive pulmonary embolus with a large embolus across the bifurcation on the right and left pulmonary arteries extending into the left main pulmonary artery, lobar segmental and subsegmental branches. Patient has a good oxygen saturation and is not in respiratory distress. Lovenox 150 mg given. Not on nasal cannula. Hospital Course Hospital Course: Patient was admitted with difficulty breathing and shortness of breath. She was found to have multiple pulmonary emboli with a large embolus across the bifurcation of the right and left pulmonary arteries extending into the left main pulmonary artery as well as thrombus in the interlobar artery and the lobar branches of the right middle lobes. Echocardiogram done revealed no significant findings with a preserved left ventricular ejection fraction but right ventricular function cannot be assessed due to poor image quality. Patient has a prior history of venous thromboembolism and had been on Coumadin until about 7 years ago. She has a family history of venous thromboembolism. Patient will need outpatient follow-up and evaluation of possible underlying etiologies. There was no deep venous thrombosis found on Doppler studies. She received Lovenox subcutaneously throughout her hospital stay and she has since been transitioned to apixaban at discharge. Has remained hemodynamically stable and is not hypoxemic with oxygen saturation more than 98% on room air. Would no further interventions been planned and with hemodynamic stability patient is been discharged home for outpatient follow-up. She received apixaban teaching prior to discharge Physical Exam Vital Signs: Temp Pulse Resp BP Pulse Ox 97.7 F 82 16 107/54 L 98 03/24/18 07:53 03/24/18 07:53 03/24/18 07:53 03/24/18 07:53 03/24/18 07:53 Intake & Output 03/23/18 03/24/18 03/25/18 06:59 06:59 06:59 Intake Total 1079 1694 Balance 1079 1694 Weight 158.2 kg 159.2 kg General appearance: PRESENT: no acute distress, well-developed, well-nourished Head exam: PRESENT: atraumatic, normocephalic Eye exam: PRESENT: conjunctiva pink, EOMI, PERRLA. ABSENT: scleral icterus Ear exam: PRESENT: normal external ear exam Mouth exam: PRESENT: moist, tongue midline Neck exam: ABSENT: carotid bruit, JVD, lymphadenopathy, thyromegaly Respiratory exam: PRESENT: clear to auscultation rufus. ABSENT: rales, rhonchi, wheezes Cardiovascular exam: PRESENT: RRR. ABSENT: diastolic murmur, rubs, systolic murmur Pulses: PRESENT: normal dorsalis pedis pul Vascular exam: PRESENT: normal capillary refill GI/Abdominal exam: PRESENT: normal bowel sounds, soft. ABSENT: distended, guarding, mass, organolmegaly, rebound, tenderness Rectal exam: PRESENT: deferred Extremities exam: PRESENT: full ROM. ABSENT: calf tenderness, clubbing, pedal edema Neurological exam: PRESENT: alert, awake, oriented to person, oriented to place , oriented to time, oriented to situation, CN II-XII grossly intact. ABSENT: motor sensory deficit Psychiatric exam: PRESENT: appropriate affect, normal mood. ABSENT: homicidal ideation, suicidal ideation Skin exam: PRESENT: dry, intact, rash, warm. ABSENT: cyanosis Results Laboratory Results: 03/24/18 04:25 03/24/18 03/24/18 04:25 08:15 WBC 7.9 RBC 3.85 Hgb 13.0 Hct 37.9 MCV 99 H MCH 33.9 H MCHC 34.4 RDW 13.2 Plt Count 146 L Urine Color YELLOW Urine Appearance CLOUDY Urine pH 5.0 Ur Specific [place] 1.023 Urine Protein NEGATIVE Urine Glucose (UA) NEGATIVE Urine Ketones NEGATIVE Urine Blood MODERATE H Urine Nitrite NEGATIVE Ur Leukocyte Esterase TRACE H Urine WBC (Auto) 4 Urine RBC (Auto) 6 03/22/18 03/22/18 03/22/18 06:30 12:55 18:20 Troponin I 0.078 0.063 0.073 Impressions: Chest X-Ray 03/21/18 20:24 IMPRESSION: NO ACUTE RADIOGRAPHIC FINDING IN THE CHEST. Chest/Abdomen CTA 03/21/18 22:31 IMPRESSION: Extensive pulmonary embolus with a large embolus across the bifurcation of the right and left pulmonary arteries extending into the left main pulmonary artery, lobar segmental and subsegmental branches There is thrombus in the interlobar artery and the lobar branches to the right lower and middle lobes as well as in segmental and subsegmental branches to the right lower and upper lobe Flattening of the interventricular septum and mild prominence of the pulmonary artery which may reflect early right heart strain Dr. Conklin was called and notified of the findings at 11:00 PM central time. Intrafissural lymph nodes as described Venous Doppler Study 03/23/18 00:00 IMPRESSION: NO EVIDENCE DVT OR SVT IN EITHER LEG. Qualifiers - * PATIENT BEING DISCHARGED WITH ANY OF THE FOLLOWING DIAGNOSIS: VTE (PE or DVT) VTE patient discharged on overlapping Therapy?: No Reason(s) for not prescribing Overlap Therapy:: Not indicated - DC on Apixaban
[2018-03-24 11:41] VITALS: BP 110/55
== END 2018-03-24 12:48 | disposition home or self-care (01) | DRG 176 ==
LOC: ER 20:15 → OBSVTOIN 03-22 01:49 → EH 03-22 01:49 → 3S 03-22 15:10
PROVIDERS: ADMIT Internal Medicine; ATTEND Internal Medicine
DX: I26.99 Other pulmonary embolism without acute cor pulmonale (principal); Z79.899 Other long term (current) drug therapy; Z86.711 Personal history of pulmonary embolism; Z90.49 Acquired absence of other specified parts of digestive tract; F17.210 Nicotine dependence, cigarettes, uncomplicated
CPT/HCPCS: 36415; 71045; 71275; 80048; 80307; 81001; 81025; 82803; 83735; 83880; 84100; 84484; 85025; 85027; 85379; 85610; 85730; 93005; 93010; 93306; 93970; 96372; 99285; J3490; J7030

== ENCOUNTER 2019-03-19 23:39 | Emergency (ER) | payer MEDICAID ==
--- NOTE | 2019-03-20 02:55 | ER Document Report ---
HPI - HPI Time Seen by Provider: 03/20/19 02:28 Pain Level: 3 Context: Patient is a 43-year-old female that comes emergency department for chief complaint of a nonhealing wound on the right inner ankle area. She states that she thought she got bit by a spider because she started noticing an area that was itchy and irritated, she states that she thinks the area got scratched away at as well with the itchiness, she states that she has started putting dressings on it but it has gotten bigger. She denies pain to the area, spreading redness, fever/chills. She is not a diabetic reportedly. Her tetanus is up-to-date reportedly. - REPRODUCTIVE Reproductive: DENIES: : Past Medical History - General Information source: Patient - Social History Smoking Status: Current Every Day Smoker Smoking Education Provided: Yes - <3 min Frequency of alcohol use: None Drug Abuse: None Lives with: Family Family History: Reviewed & Not Pertinent, DM, Other - DVT Patient has suicidal ideation: No Patient has homicidal ideation: No - Past Medical History Cardiac Medical History: Reports: Hx Pulmonary Embolism - States she had a pulmonary emboli and a clot in her heart about 7 years ago Renal/ Medical History: Denies: Hx Peritoneal Dialysis Past Surgical History: Reports: Hx Section, Hx Cholecystectomy - Immunizations Hx Diphtheria, Pertussis, Tetanus Vaccination: Yes Vertical Provider Document - CONSTITUTIONAL General Appearance: WD/WN, No Apparent Distress, Obese - INFECTION CONTROL TRAVEL OUTSIDE OF THE [place] IN LAST 30 DAYS: No - HEENT HEENT: Atraumatic, Normocephalic - NECK Neck: Normal Inspection - RESPIRATORY Respiratory: Breath Sounds Normal, No Respiratory Distress - CARDIOVASCULAR Cardiovascular: Regular Rate, Regular Rhythm - GI/ABDOMEN Gastrointestinal: Abdomen Soft, Abdomen Non-Tender - BACK Back: Normal Inspection - MUSCULOSKELETAL/EXTREMETIES Musculoskeletal/Extremeties: MAEW, FROM, Non-Tender - NEURO Level of Consciousness: Awake, Alert, Appropriate - DERM Integumentary: negative: Abscess - Over the medial right ankle/foot and there is a oval-shaped approximately 1.5 cm area consistent with an ulcer. There is some surrounding mild pink tissue which appears to be granulation tissue but there is no abnormal heat, tenderness, or fluctuance, there is no induration, there is no significant erythema. Unremarkable skin exam otherwise. Course - Re-evaluation Re-evalutation: Patient has what appears to be an ulcer on the foot, she does have good distal pulses, sensation, and there is no evidence of infection of the area at this time. Appears to be nonhealing wound. This does appear to rub with her shoes and she was provided with an we discussed addressing, but I did recommend she follow-up with the surgical/wound clinic for debridement and additional management, however no antibiotic will be used at this time because it does not appear infected. Patient states that she will stop cleaning at all the time with alcohol and peroxide as well because of the irritation. Patient states understanding and agreement with plan. - Vital Signs Vital signs: Temp Pulse Resp BP Pulse Ox 98.1 F 86 20 126/74 H 94 03/20/19 00:05 03/20/19 00:05 03/20/19 00:05 03/20/19 00:05 03/20/19 00:05 Discharge - Discharge Clinical Impression: Non-healing ulcer of ankle Qualifiers: Laterality: right Non-pressure ulcer stage: unspecified non-pressure ulcer stage Qualified Code(s): L97.319 - Non-pressure chronic ulcer of right ankle with unspecified severity Condition: Stable Disposition: HOME, SELF-CARE Additional Instructions: You have an ulcer on your right inner ankle which appears to be a nonhealing wound at this point. Clean the area with soap and water, dry it, place clean dressing over the area. Stop placing alcohol and peroxide on it. Follow-up with the surgical clinic/wound clinic for additional evaluation and management. Return for any signs of infection including developing or spreading redness, discolored discharge, fever/chills, or any other concerning symptoms. Forms: Return to Work Referrals: Wound Care [Provider Group] - Follow up as needed [facility] [Provider Group] - Follow up as needed
[2019-03-20 06:09] VITALS: BP 122/68
== END 2019-03-20 06:09 | disposition home or self-care (01) ==
LOC: ER 23:39
DX: L97.319 Non-pressure chronic ulcer of right ankle with unspecified severity (principal); F17.200 Nicotine dependence, unspecified, uncomplicated
CPT/HCPCS: 99281

== ENCOUNTER 2019-04-15 20:26 | Emergency (ER) | payer MEDICAID ==
--- NOTE | 2019-04-15 21:17 | ER Document Report ---
ED Medical Screen (RME) - General Chief Complaint: Foot Pain Stated Complaint: ITCHING/FOOT PAIN Time Seen by Provider: 04/15/19 21:08 Mode of Arrival: Ambulatory Information source: Patient Notes: 43-year-old female presents to ED for complaint of pain in the right foot and increased swelling in both feet. Both feet the right foot is been for couple weeks the left foot has been since yesterday she does have peripheral vascular disease. She has generalized itching and that looks like insect bites since Thursday when she stayed in a motel. She does have a history of DVT. Her rash does appear to be scabies. TRAVEL OUTSIDE OF THE [place] IN LAST 30 DAYS: No - Related Data Allergies/Adverse Reactions: No Known Allergies Allergy (Verified 03/22/18 03:23) Past Medical History - Past Medical History Cardiac Medical History: Reports: Hx Pulmonary Embolism - States she had a pulmonary emboli and a clot in her heart about 7 years ago Renal/ Medical History: Denies: Hx Peritoneal Dialysis Past Surgical History: Reports: Hx Section, Hx Cholecystectomy - Immunizations Hx Diphtheria, Pertussis, Tetanus Vaccination: Yes Physical Exam - Vital signs Vitals: Temp Pulse Resp BP Pulse Ox 98.6 F 128 H 24 H 84/68 L 100 04/15/19 20:41 04/15/19 20:41 04/15/19 20:41 04/15/19 20:41 04/15/19 20:41 Course - Vital Signs Vital signs: Temp Pulse Resp BP Pulse Ox 98.4 F 88 18 142/90 H 100 04/15/19 20:45 04/15/19 20:45 04/15/19 20:45 04/15/19 20:45 04/15/19 20:45
--- NOTE | 2019-04-15 23:05 | RADIOLOGY REPORT (SQ) ---
EXAM DESCRIPTION: Lower extremity venous duplex 04/15/2019 10:03 PM CDT CLINICAL HISTORY: 43 years, 43 years, Edema left leg COMPARISON: None TECHNIQUE: Utilizing a linear array transducer, real-time ultrasound evaluation of the left lower extremity was performed. Color Doppler imaging was used to assess vascular flow. FINDINGS: The left common femoral and proximal/mid/distal superficial femoral veins are normal in caliber and compressibility. There is normal directional flow. The left popliteal vein is normal in appearance. There is normal directional flow and normal compressibility. IMPRESSION: No evidence of left lower extremity deep venous thrombosis.
[2019-04-16 01:25] LABS: ABSOLUTE BASOPHILS # (AUTO) 0.1 10^3/uL (0.0-0.2); ABSOLUTE EOSINOPHILS # (AUTO) 0.5 10^3/uL (0.0-0.6); ABSOLUTE LYMPHOCYTES (AUTO) 2.4 10^3/uL (0.5-4.7); ABSOLUTE MONOCYTES (AUTO) 0.5 10^3/uL (0.1-1.4); ABSOLUTE NEUT (AUTO) 4.7 10^3/uL (1.7-8.2); BASOPHILS % (AUTO) 0.8 % (0-2); EOSINOPHILS % (AUTO) 5.7 % (0-6); HEMATOCRIT 41.4 % (36.0-47.0); HEMOGLOBIN 14.1 g/dL (12.0-15.5); LYMPHOCYTES % (AUTO) 29.4 % (13-45); MEAN CORPUSCULAR HEMOGLOBIN 33.4 pg (27.0-33.4); MEAN CORPUSCULAR HGB CONC 34.1 g/dL (32.0-36.0); MEAN CORPUSCULAR VOLUME 98 fl (80-97); MONOCYTES % (AUTO) 6.2 % (3-13); PLATELET COUNT 244 10^3/uL (150-450); RED BLOOD COUNT 4.23 10^6/uL (3.72-5.28); RED CELL DISTRIBUTION WIDTH 13.5 % (11.5-14.0); SEGMENTED NEUTROPHILS % (AUTO) 57.9 % (42-78); TOTAL CELLS COUNTED % (AUTO) 100 %; WHITE BLOOD COUNT 8.1 10^3/uL (4.0-10.5)
[2019-04-16 01:33] LABS: APPEARANCE,URINE CLOUDY; BILIRUBIN,URINE NEGATIVE (NEGATIVE); CALCIUM OXALATE CRYSTALS,URINE TOO NUMEROUS TO CNT /HPF; COLOR,URINE YELLOW; GLUCOSE, URINE NEGATIVE (NEGATIVE); KETONES,URINE NEGATIVE (NEGATIVE); LEUKOCYTE ESTERASE,URINE NEGATIVE (NEGATIVE); NITRITE,URINE NEGATIVE (NEGATIVE); PROTEIN,URINE NEGATIVE (NEGATIVE); URINE SPECIFIC GRAVITY 1.026
[2019-04-16 01:49] LABS: ALBUMIN 3.7 g/dL (3.5-5.0); ALKALINE PHOSPHATASE 65 U/L (38-126); ANION GAP 8 (5-19); ASPARTATE AMINO TRANSFERASE 25 U/L (14-36); BILIRUBIN,DIRECT 0.1 mg/dL (0.0-0.4); BILIRUBIN,TOTAL 0.3 mg/dL (0.2-1.3); BLOOD UREA NITROGEN 9 mg/dL (7-20); CALCIUM 8.9 mg/dL (8.4-10.2); CARBON DIOXIDE 26 mmol/L (22-30); CHLORIDE 107 mmol/L (98-107); GLUCOSE 97 mg/dL (75-110); POTASSIUM 4.4 mmol/L (3.6-5.0); TOTAL PROTEIN 7.5 g/dL (6.3-8.2)
[2019-04-16] MEDS ORDERED: CEPHALEXIN 500 MG CAPSULE PO ONE (02:40)
--- NOTE | 2019-04-16 02:40 | ER Document Report ---
ED General - General Chief Complaint: Foot Pain Stated Complaint: ITCHING/FOOT PAIN Time Seen by Provider: 04/15/19 21:08 Mode of Arrival: Ambulatory Information source: Patient Notes: This 43-year-old morbidly obese female with a history of blood clots in her lungs and heart presents to the emergency department with complaints of bilateral leg pain and hands itching for the last couple days. Reports she stayed at [facility] in [place] this past week and her hands have been itching since that time. She also reports swollen's feet. She has ulcers to the medial aspects of both ankles. Patient reports she has had ulcers for over a month to the right ankle, 3-4 weeks to the left ankle. She has been treating with topical antibiotic and covering with dressings. Patient denies diabetes denies injury. 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 Denies fever vomiting diarrhea. TRAVEL OUTSIDE OF THE [place] IN LAST 30 DAYS: No - HPI Onset: Other Onset/Duration: Persistent Quality of pain: Achy Pain Level: 2 Associated symptoms: None Exacerbated by: Walking Relieved by: Denies Similar symptoms previously: Yes Recently seen / treated by doctor: No - Related Data Allergies/Adverse Reactions: No Known Allergies Allergy (Verified 03/22/18 03:23) Past Medical History - General Information source: Patient Last Menstrual Period: Last month denies - Social History Smoking Status: Current Every Day Smoker Cigarette use (# per day): Yes Chew tobacco use (# tins/day): No Frequency of alcohol use: None Drug Abuse: None Occupation: [employer] Lives with: Family Family History: Reviewed & Not Pertinent, DM, Other - DVT Patient has suicidal ideation: No Patient has homicidal ideation: No - Past Medical History Cardiac Medical History: Reports: Hx Pulmonary Embolism - States she had a pulmonary emboli and a clot in her heart about 7 years ago Endocrine Medical History: Denies: Hx Diabetes Mellitus Type 1, Hx Diabetes Mellitus Type 2 Renal/ Medical History: Denies: Hx Peritoneal Dialysis Past Surgical History: Reports: Hx Section, Hx Cholecystectomy - Immunizations Hx Diphtheria, Pertussis, Tetanus Vaccination: Yes Review of Systems - Review of Systems Notes: Review HPI for review of systems., All other systems negative Physical Exam - Vital signs Vitals: Temp 98.4 F 04/15/19 20:41 - General General appearance: Alert In distress: None - HEENT Head: Normocephalic Eyes: Normal Conjunctiva: Normal Neck: Normal, Supple. No: Lymphadenopathy - Respiratory Respiratory status: No respiratory distress Breath sounds: Normal - Cardiovascular Rhythm: Regular - Abdominal Inspection: Normal Tenderness: Nontender - Extremities General upper extremity: Normal ROM General lower extremity: Normal ROM Ankle: Other - Bilateral open sores to medial aspects, no drainage, no erythema around the sores, no warmth - Neurological Neuro grossly intact: Yes Cognition: Normal Orientation: AAOx4 Eloy Coma Scale Eye Opening: Spontaneous Eloy Coma Scale Verbal: Oriented Rm Coma Scale Motor: Obeys Commands Eloy Coma Scale Total: 15 Speech: Normal - Psychological Associated symptoms: Normal affect, Normal mood - Skin Skin Temperature: Warm Skin Moisture: Dry Skin irregularity: Decubitus ulcer - Decubitus ulcers to medial aspects of bilateral ankles stage II. Left ankle with 2 open areas #1 area approximately 2 cm irregular #2 area approximately 1 cm around, right ankle with one decubitus approximately 3 cm in rectangular shape. No drainage no warmth some erythema around the area.. negative: Erythema Location of irregularity: Extremities - Itching in between fingers with what appears to be scabies burrows Course - Re-evaluation Re-evalutation: 04/16/19 03:03 This 43-year-old female presents the emergency department with bilateral leg pain with concern for blood clots. Patient has a history of PE and blood clots in her heart. She is not taking medications for this. Patient also has decubitus ulcers medially to the bilateral ankles. No fever vomiting diarrhea. Patient also complained of her hands itching since she stayed at the [facility] in [place]. Labs unremarkable, venous Doppler study negative for DVT. Patient will be treated with Keflex for the decubitus ulcers and also instructed on the importance of care. She does not have insurance. She was instructed [facility] for referral to wound care. Dr. Johnson was consulted and assessed patient, agrees with plan to discharge. Patient verbalized understanding to all instructions. Venous Doppler Study 04/15/19 21:17 IMPRESSION: No evidence of left lower extremity deep venous thrombosis. 04/16/19 01:00 04/16/19 01:00 MCV 98 fl (80-97) H 04/16/19 01:00 MCH 33.4 pg (27.0-33.4) 04/16/19 01:00 MCHC 34.1 g/dL (32.0-36.0) 04/16/19 01:00 RDW 13.5 % (11.5-14.0) 04/16/19 01:00 Seg Neutrophils % 57.9 % (42-78) 04/16/19 01:00 Chloride 107 mmol/L (98-107) 04/16/19 01:00 Carbon Dioxide 26 mmol/L (22-30) 04/16/19 01:00 Anion Gap 8 (5-19) 04/16/19 01:00 Est GFR ( Amer) > 60 (>60) 04/16/19 01:00 Glucose 97 mg/dL (75-110) 04/16/19 01:00 Calcium 8.9 mg/dL (8.4-10.2) 04/16/19 01:00 Total Bilirubin 0.3 mg/dL (0.2-1.3) 04/16/19 01:00 AST 25 U/L (14-36) 04/16/19 01:00 Alkaline Phosphatase 65 U/L (38-126) 04/16/19 01:00 Total Protein 7.5 g/dL (6.3-8.2) 04/16/19 01:00 Albumin 3.7 g/dL (3.5-5.0) 04/16/19 01:00 Urine Color YELLOW 04/16/19 01:00 Urine Appearance CLOUDY 04/16/19 01:00 Urine pH 5.0 (5.0-9.0) 04/16/19 01:00 Ur Specific [place] 1.026 04/16/19 01:00 Urine Protein NEGATIVE mg/dL (NEGATIVE) 04/16/19 01:00 Urine Glucose (UA) NEGATIVE mg/dL (NEGATIVE) 04/16/19 01:00 Urine Ketones NEGATIVE mg/dL (NEGATIVE) 04/16/19 01:00 Urine Blood NEGATIVE (NEGATIVE) 04/16/19 01:00 Urine Nitrite NEGATIVE (NEGATIVE) 04/16/19 01:00 Ur Leukocyte Esterase NEGATIVE (NEGATIVE) 04/16/19 01:00 Urine WBC (Auto) 5 /HPF 04/16/19 01:00 Urine RBC (Auto) 2 /HPF 04/16/19 01:00 - Vital Signs Vital signs: Temp Pulse Resp BP Pulse Ox 98.6 F 18 L 18 156/88 H 100 04/16/19 04:08 04/16/19 04:08 04/16/19 04:08 04/16/19 04:08 04/15/19 20:45 - Laboratory Result Diagrams: 04/16/19 01:00 04/16/19 01:00 Laboratory results interpreted by me: 04/16/19 04/16/19 01:00 01:00 MCV 98 H Urine Urobilinogen 4.0 H - Diagnostic Test Radiology reviewed: Image reviewed Discharge - Discharge Clinical Impression: Scabies Decubitus ulcers Qualifiers: Pressure injury location: ankle Pressure injury stage: stage 2 Condition: Stable Disposition: HOME, SELF-CARE Instructions: Cephalexin ([facility]), Decubitus Ulcer ([facility]), Scabies ([facility]) Additional Instructions: *You have been evaluated for bilateral leg pain, scabies, decubitus ulcers *Use cream as prescribed for scabies *Rest/elevate your legs, monitor the ulcers for signs of infection such as redness warmth increased pain discharge, keep them clean *[facility] for referral to [facility] care *Take medication as prescribed *Return to ED for worsening condition, changes, needs, fever or worsening decubitus, concerns Monitor your blood pressure. Your blood pressure was elevated today. This may be because you were anxious, in pain or because you need medication. It is important to follow up with your primary care provider for full evaluation. Prescriptions: Permethrin [Acticin 5% Cream 60 gm] 1 applic TP DAILY #1 tube Cephalexin Monohydrate [Keflex 500 mg Capsule] 500 mg PO QID #20 capsule Forms: Elevated Blood Pressure, Smoking Cessation Education, Return to Work
[2019-04-16 04:10] VITALS: BP 156/88
== END 2019-04-16 04:08 | disposition home or self-care (01) ==
LOC: ER 20:26
DX: B86 Scabies (principal); L89.522 Pressure ulcer of left ankle, stage 2; L89.512 Pressure ulcer of right ankle, stage 2; M79.604 Pain in right leg; M79.605 Pain in left leg; M79.89 Other specified soft tissue disorders; F17.210 Nicotine dependence, cigarettes, uncomplicated; Z86.711 Personal history of pulmonary embolism; E66.01 Morbid (severe) obesity due to excess calories
CPT/HCPCS: 36415; 80053; 81001; 85025; 93971; 99284

== ENCOUNTER 2019-08-13 20:06 | Emergency (ER) | payer MEDICAID ==
--- NOTE | 2019-08-13 20:48 | ER Document Report ---
ED Medical Screen (RME) - General Chief Complaint: Skin Sore(s) Stated Complaint: LEG PAIN Time Seen by Provider: 08/13/19 20:43 Mode of Arrival: Ambulatory Information source: Patient Notes: 43-year-old female presents with bilateral sores to her legs. Reports she has had these sores for Months. Patient was evaluated and treated in April for ulcers. She reports her right lower leg has more erythema. She admits it has been there for a couple months. But it is not healing. Denies fever vomiting diarrhea. Denies history of diabetes. I have greeted and performed a rapid initial assessment of this patient. A comprehensive ED assessment and evaluation of the patient, analysis of test results and completion of the medical decision making process will be conducted by additional ED providers. TRAVEL OUTSIDE OF THE [place] IN LAST 30 DAYS: No - Related Data Allergies/Adverse Reactions: No Known Allergies Allergy (Verified 03/22/18 03:23) Past Medical History - Past Medical History Cardiac Medical History: Reports: Hx Pulmonary Embolism - States she had a pulmonary emboli and a clot in her heart about 7 years ago Endocrine Medical History: Denies: Hx Diabetes Mellitus Type 1, Hx Diabetes Mellitus Type 2 Renal/ Medical History: Denies: Hx Peritoneal Dialysis Past Surgical History: Reports: Hx Section, Hx Cholecystectomy - Immunizations Hx Diphtheria, Pertussis, Tetanus Vaccination: Yes Physical Exam - Vital signs Vitals: Temp Pulse Resp BP Pulse Ox 98.2 F 92 20 140/80 H 98 08/13/19 20:23 08/13/19 20:23 08/13/19 20:23 08/13/19 20:23 08/13/19 20:23 Course - Vital Signs Vital signs: Temp Pulse Resp BP Pulse Ox 98.2 F 92 20 140/80 H 98 08/13/19 20:23 08/13/19 20:23 08/13/19 20:23 08/13/19 20:23 08/13/19 20:23
[2019-08-13 21:28] LABS: ABSOLUTE BASOPHILS # (AUTO) 0.1 10^3/uL (0.0-0.2); ABSOLUTE EOSINOPHILS # (AUTO) 0.2 10^3/uL (0.0-0.6); ABSOLUTE LYMPHOCYTES (AUTO) 1.9 10^3/uL (0.5-4.7); ABSOLUTE MONOCYTES (AUTO) 0.3 10^3/uL (0.1-1.4); ABSOLUTE NEUT (AUTO) 3.9 10^3/uL (1.7-8.2); BASOPHILS % (AUTO) 0.9 % (0-2); EOSINOPHILS % (AUTO) 3.9 % (0-6); HEMATOCRIT 40.2 % (36.0-47.0); HEMOGLOBIN 14.1 g/dL (12.0-15.5); MEAN CORPUSCULAR HEMOGLOBIN 33.8 pg (27.0-33.4); MEAN CORPUSCULAR HGB CONC 35.1 g/dL (32.0-36.0); MEAN CORPUSCULAR VOLUME 97 fl (80-97); MONOCYTES % (AUTO) 5.1 % (3-13); PLATELET COUNT 243 10^3/uL (150-450); RED BLOOD COUNT 4.17 10^6/uL (3.72-5.28); RED CELL DISTRIBUTION WIDTH 12.9 % (11.5-14.0); SEGMENTED NEUTROPHILS % (AUTO) 61.1 % (42-78); TOTAL CELLS COUNTED % (AUTO) 100 %; WHITE BLOOD COUNT 6.4 10^3/uL (4.0-10.5)
[2019-08-13 21:55] LABS: ALBUMIN 3.9 g/dL (3.5-5.0); ALKALINE PHOSPHATASE 92 U/L (38-126); ANION GAP 9 (5-19); ASPARTATE AMINO TRANSFERASE 27 U/L (14-36); BILIRUBIN,DIRECT 0.1 mg/dL (0.0-0.4); BILIRUBIN,TOTAL 0.3 mg/dL (0.2-1.3); BLOOD UREA NITROGEN 13 mg/dL (7-20); CALCIUM 8.8 mg/dL (8.4-10.2); CARBON DIOXIDE 26 mmol/L (22-30); CHLORIDE 104 mmol/L (98-107); GLUCOSE 115 mg/dL (75-110); TOTAL PROTEIN 8.3 g/dL (6.3-8.2)
[2019-08-14] MEDS ORDERED: DOXYCYCLINE HYCLATE 100 MG TABLET PO ONE (00:33)
--- NOTE | 2019-08-14 00:38 | ER Document Report ---
HPI - HPI Time Seen by Provider: 08/13/19 20:43 Pain Level: 5 Context: Patient is a 43-year-old female that comes emergency department for chief complaint of developing redness and discomfort over her anterior legs bilaterally. She states that she has a chronic cycle of intermittent leg swelling, fleabites, constant scratching and itching, and occasionally these get redder and worse. She states recently she was treated with permethrin and Keflex but she broke onto a rash everywhere and feels like she did not improve. She denies history of diabetes. She is on no daily medications. Past medical history includes obesity, pulmonary embolism, cholecystectomy, . - REPRODUCTIVE Reproductive: DENIES: : Past Medical History - General Information source: Patient - Social History Smoking Status: Current Every Day Smoker Smoking Education Provided: Yes - <3 min Drug Abuse: None Lives with: Family Family History: Reviewed & Not Pertinent, DM, Other - DVT Patient has suicidal ideation: No Patient has homicidal ideation: No - Past Medical History Cardiac Medical History: Reports: Hx Pulmonary Embolism - States she had a pulmonary emboli and a clot in her heart about 7 years ago Endocrine Medical History: Denies: Hx Diabetes Mellitus Type 1, Hx Diabetes Mellitus Type 2 Renal/ Medical History: Denies: Hx Peritoneal Dialysis Past Surgical History: Reports: Hx Section, Hx Cholecystectomy - Immunizations Hx Diphtheria, Pertussis, Tetanus Vaccination: Yes Vertical Provider Document - CONSTITUTIONAL General Appearance: WD/WN, No Apparent Distress - INFECTION CONTROL TRAVEL OUTSIDE OF THE [place] IN LAST 30 DAYS: No - HEENT HEENT: Atraumatic, Normocephalic - NECK Neck: Normal Inspection - RESPIRATORY Respiratory: Breath Sounds Normal, No Respiratory Distress - CARDIOVASCULAR Cardiovascular: Regular Rate, Regular Rhythm. negative: Tachycardia - GI/ABDOMEN Gastrointestinal: Abdomen Soft, Abdomen Non-Tender. negative: Abdomen Tender - BACK Back: Normal Inspection - MUSCULOSKELETAL/EXTREMETIES Musculoskeletal/Extremeties: MAEW, FROM, Non-Tender - NEURO Level of Consciousness: Awake, Alert, Appropriate Motor/Sensory: No Motor Deficit, No Sensory Deficit - DERM Integumentary: Warm, Dry, Rash - Dry skin around the ankles, discoloration of the lower extremities suggesting some component of venous stasis. Multiple excoriated areas over both anterior distal tibial areas with scabs present in multiple locations as well. There are 2 scabs in particular, one over each anterior distal leg, with some surrounding erythema and warmth more specific than the rest of them. Suggestive of mild cellulitis. Normal distal pulses and sensation, normal lower extremity and skin exam otherwise. Course - Re-evaluation Re-evalutation: There is no swelling of the lower extremities at this time. There are chronic skin changes in both of the lower extremities, dry skin, multiple excoriated areas, and 2 small areas of cellulitis developing over excoriated areas. No purulent drainage, induration, fluctuance, or large extent of cellulitis. No fever, no leukocytosis, no tachycardia. Blood sugar is borderline. Patient will be placed on antibiotic, referred to primary care for follow-up, discussed return precautions and wound care specifically. Patient states understanding and agreement. Stable at time of discharge. - Vital Signs Vital signs: Temp Pulse Resp BP Pulse Ox 98.0 F 82 15 119/62 100 08/13/19 22:34 08/13/19 22:34 08/13/19 22:34 08/13/19 22:34 08/13/19 22:34 - Laboratory Result Diagrams: 08/13/19 21:13 08/13/19 21:13 Laboratory results interpreted by me: 08/13/19 08/13/19 08/13/19 21:13 21:13 22:32 MCH 33.8 H Glucose 115 H POC Glucose 152 H Total Protein 8.3 H Discharge - Discharge Clinical Impression: Skin sore Cellulitis Qualifiers: Site of cellulitis: extremity Site of cellulitis of extremity: lower extremity Laterality: unspecified laterality Qualified Code(s): L03.119 - Cellulitis of unspecified part of limb Condition: Stable Disposition: HOME, SELF-CARE Additional Instructions: Your legs showed chronic skin changes, multiple scratched areas, and 2 areas concerning for developing skin infection (cellulitis). Take antibiotic as prescribed, avoid scratching, keep antibiotic dressing over any scratched areas, apply moisturizing cream to the dried skin areas. Consider wearing socks that cover these after dressings are applied to avoid scratching. Follow closely with primary care for additional management. Return if you worsen including developing or spreading redness, swelling, spiking fever, or any other concerning or worsening symptoms. Prescriptions: Doxycycline Hyclate [Vibramycin 100 mg Tablet] 100 mg PO BID 7 Days #14 tablet Referrals: [facility] [Provider Group] - Follow up in 1 week [facility] [Provider Group] - Follow up in 1 week
[2019-08-14 00:54] VITALS: BP 120/81
== END 2019-08-14 01:08 | disposition home or self-care (01) ==
LOC: ER 20:06
DX: L98.9 Disorder of the skin and subcutaneous tissue, unspecified (principal); L03.119 Cellulitis of unspecified part of limb; M79.604 Pain in right leg; M79.605 Pain in left leg; M79.89 Other specified soft tissue disorders; R21 Rash and other nonspecific skin eruption; F17.200 Nicotine dependence, unspecified, uncomplicated
CPT/HCPCS: 99283; 36415; 82962; 85025; 80053; J3490

== ENCOUNTER 2020-03-07 18:02 | Emergency (ER) | payer MEDICAID ==
--- NOTE | 2020-03-07 18:53 | ER Document Report ---
ED Medical Screen (RME) - General Chief Complaint: Skin Sore(s) Stated Complaint: SKIN SORES ON LEGS,DRAINAGE Time Seen by Provider: 03/07/20 18:47 Mode of Arrival: Ambulatory Information source: Patient Notes: Patient presents with chronic wounds to bilateral lower extremity that she is had for the past year. Patient has been cleansing the wounds with peroxide and applying Neosporin. Patient states that 4 days ago the wound to her right lower leg started to have green pus draining from it. Patient denies any fever any chronic medical problems. I have greeted and performed a rapid initial assessment of this patient. A comprehensive ED assessment and evaluation of the patient, analysis of test results and completion of the medical decision making process will be conducted by additional ED providers. TRAVEL OUTSIDE OF THE [place] IN LAST 30 DAYS: No - Related Data Allergies/Adverse Reactions: No Known Allergies Allergy (Verified 03/07/20 18:48) Past Medical History - Past Medical History Cardiac Medical History: Reports: Hx Pulmonary Embolism - States she had a pulmonary emboli and a clot in her heart about 7 years ago Endocrine Medical History: Denies: Hx Diabetes Mellitus Type 1, Hx Diabetes Mellitus Type 2 Renal/ Medical History: Denies: Hx Peritoneal Dialysis Past Surgical History: Reports: Hx Section, Hx Cholecystectomy - Immunizations Hx Diphtheria, Pertussis, Tetanus Vaccination: Yes Physical Exam - Vital signs Vitals: Temp Pulse Resp BP Pulse Ox 98.2 F 102 H 16 136/71 H 100 03/07/20 18:08 03/07/20 18:08 03/07/20 18:08 03/07/20 18:08 03/07/20 18:08 - General Notes: Patient with multiple chronic wounds to bilateral lower extremity with surrounding erythema and crusting lesions. Patient with large ulcerations to her extremities bilaterally Course - Vital Signs Vital signs: Temp Pulse Resp BP Pulse Ox 98.2 F 102 H 16 136/71 H 100 03/07/20 18:08 03/07/20 18:08 03/07/20 18:08 03/07/20 18:08 03/07/20 18:08
[2020-03-07 19:51] LABS: ABSOLUTE EOSINOPHILS # (AUTO) 0.2 10^3/uL (0.0-0.6); ABSOLUTE LYMPHOCYTES (AUTO) 1.5 10^3/uL (0.5-4.7); ABSOLUTE MONOCYTES (AUTO) 0.4 10^3/uL (0.1-1.4); ABSOLUTE NEUT (AUTO) 5.8 10^3/uL (1.7-8.2); BASOPHILS % (AUTO) 0.4 % (0-2); EOSINOPHILS % (AUTO) 2.3 % (0-6); HEMATOCRIT 40.8 % (36.0-47.0); HEMOGLOBIN 13.8 g/dL (12.0-15.5); LYMPHOCYTES % (AUTO) 18.7 % (13-45); MEAN CORPUSCULAR HEMOGLOBIN 32.9 pg (27.0-33.4); MEAN CORPUSCULAR HGB CONC 33.9 g/dL (32.0-36.0); MEAN CORPUSCULAR VOLUME 97 fl (80-97); MONOCYTES % (AUTO) 4.8 % (3-13); PLATELET COUNT 255 10^3/uL (150-450); RED CELL DISTRIBUTION WIDTH 13.5 % (11.5-14.0); SEGMENTED NEUTROPHILS % (AUTO) 73.8 % (42-78); TOTAL CELLS COUNTED % (AUTO) 100 %; WHITE BLOOD COUNT 7.9 10^3/uL (4.0-10.5)
[2020-03-07 20:03] LABS: ALBUMIN 4.1 g/dL (3.5-5.0); ALKALINE PHOSPHATASE 68 U/L (38-126); ANION GAP 7 (5-19); ASPARTATE AMINO TRANSFERASE 28 U/L (14-36); BILIRUBIN,DIRECT 0.3 mg/dL (0.0-0.4); BILIRUBIN,TOTAL 0.6 mg/dL (0.2-1.3); BLOOD UREA NITROGEN 14 mg/dL (7-20); CARBON DIOXIDE 27 mmol/L (22-30); CHLORIDE 106 mmol/L (98-107); GLUCOSE 134 mg/dL (75-110); POTASSIUM 4.5 mmol/L (3.6-5.0); TOTAL PROTEIN 8.8 g/dL (6.3-8.2)
--- NOTE | 2020-03-08 01:26 | RADIOLOGY REPORT (SQ) ---
CLINICAL INDICATION: ulceration/wound soft tissue. . TECHNIQUE: 2 view(s) were obtained of the left leg. COMPARISON: None. FINDINGS: No acute displaced fracture is identified of the leg. Alignment appears anatomic. Joint spaces are within normal limits for age. Soft tissue swelling. If knee or ankle are clinically in suspicion, then dedicated radiography is advised. IMPRESSION: No evidence of acute bony injury to the leg. Soft tissue swelling
--- NOTE | 2020-03-08 01:27 | RADIOLOGY REPORT (SQ) ---
CLINICAL INDICATION: ulceration/wound soft tissue. . TECHNIQUE: 2 view(s) were obtained of the right leg. COMPARISON: None. FINDINGS: No acute displaced fracture is identified of the leg. Alignment appears anatomic. Joint spaces are within normal limits for age. Soft tissue swelling. Large wound anterior leg without foreign body. No plain radiographic evidence of osteomyelitis. If knee or ankle are clinically in suspicion, then dedicated radiography is advised. IMPRESSION: No evidence of acute bony injury to the leg. Soft tissue swelling. Soft tissue wound.
[2020-03-08] MEDS ORDERED: CLINDAMYCIN HCL 150 MG CAPSULE PO ONE (04:17)
--- NOTE | 2020-03-08 04:23 | ER Document Report ---
ED General - General Chief Complaint: Skin Sore(s) Stated Complaint: SKIN SORES ON LEGS,DRAINAGE Time Seen by Provider: 03/07/20 18:47 Mode of Arrival: Ambulatory TRAVEL OUTSIDE OF THE [place] IN LAST 30 DAYS: No - HPI Notes: Patient is a 44-year-old female who presents to the emergency department for evaluation of her leg wounds. She states that she has had chronic wounds on her legs. She has not followed up with anyone about them. She states that the one on her right calf started draining some "green drainage" today so she thought she should get evaluated. She denies any fevers or chills. No nausea or vomiting. She states her swelling is slightly worse after waiting in the emergency department, because usually she keeps her legs up all day, but states that overall this is not abnormal for her leg swelling. She denies any chest pain or shortness of breath. - Related Data Allergies/Adverse Reactions: No Known Allergies Allergy (Verified 03/07/20 18:48) Home Medications: denies Past Medical History - General Information source: Patient - Social History Smoking Status: Current Every Day Smoker Chew tobacco use (# tins/day): No Frequency of alcohol use: None Drug Abuse: None Family History: Reviewed & Not Pertinent, DM, Other - DVT Patient has homicidal ideation: No - Past Medical History Cardiac Medical History: Reports: Hx Pulmonary Embolism - States she had a pulmonary emboli and a clot in her heart about 7 years ago Endocrine Medical History: Denies: Hx Diabetes Mellitus Type 1, Hx Diabetes Mellitus Type 2 Renal/ Medical History: Denies: Hx Peritoneal Dialysis Past Surgical History: Reports: Hx Section, Hx Cholecystectomy - Immunizations Hx Diphtheria, Pertussis, Tetanus Vaccination: Yes Review of Systems - Review of Systems Constitutional: No symptoms reported EENT: No symptoms reported Cardiovascular: No symptoms reported Respiratory: No symptoms reported Gastrointestinal: No symptoms reported Genitourinary: No symptoms reported Musculoskeletal: See HPI Skin: See HPI Neurological/Psychological: No symptoms reported Physical Exam - Vital signs Vitals: Temp Pulse Resp BP Pulse Ox 98.2 F 102 H 16 136/71 H 100 03/07/20 18:08 03/07/20 18:08 03/07/20 18:08 03/07/20 18:08 03/07/20 18:08 - Notes Notes: This is a morbidly obese 44-year-old female who appears her stated age, no acute distress. Head is metallic and atraumatic, pupils are equal round, reactive to light. Oral mucosa is moist. Uvula is midline. Heart is regular rate and rhythm, lungs are clear to auscultation bilaterally. Abdomen is obese, nontender, normoactive bowel sounds. Extremities show bilateral pitting edema, 2+, to the pretibial area. She has chronic appearing wounds, with extensive crusting and erythema noted. It is diffuse. She has some mild calor. She has an ulceration on each lower extremity, on the left medial and right lateral calf. They each measure about 2 x 3 cm. Examination of the ulceration on the right yields a small amount of granulation tissue and green purulent material at the base. Peripheral pulses are equal. Course - Re-evaluation Re-evalutation: 03/08/20 04:21 Patient presents to the emergency department for evaluation. She is extensive, chronic appearing wounds, consistent with likely venous insufficiency. The patient is counseled on proper wound care. She has poor hygiene, and she is encouraged to keep the wounds clean with soap and water. She is encouraged to stop using hydrogen peroxide. She is encouraged to lose weight and follow-up with wound care. She does not have a current primary care provider. She states that she is not able to be [facility]. I will refer her to [facility]. Otherwise, her wounds are cleansed and dressed. I will start her on clindamycin. She is to return to the emergency department with worsening or new concerning symptoms of any sort. - Vital Signs Vital signs: Temp Pulse Resp BP Pulse Ox 97.9 F 92 16 141/77 H 100 03/08/20 02:22 03/08/20 02:22 03/07/20 18:08 03/08/20 02:22 03/08/20 02:22 - Laboratory Result Diagrams: 03/07/20 19:35 03/07/20 19:35 Laboratory results interpreted by me: 03/07/20 19:35 Glucose 134 H Total Protein 8.8 H Discharge - Discharge Clinical Impression: Ulcer of leg, chronic, right Qualifiers: Non-pressure ulcer stage: with fat layer exposed Qualified Code(s): L97.912 - Non-pressure chronic ulcer of unspecified part of right lower leg with fat layer exposed Ulcer of leg, chronic, left Qualifiers: Non-pressure ulcer stage: with fat layer exposed Qualified Code(s): L97.922 - Non-pressure chronic ulcer of unspecified part of left lower leg with fat layer exposed Condition: Stable Disposition: HOME, SELF-CARE Instructions: Foot or Leg Ulcer ([facility]), Wound Infection ([facility]) Additional Instructions: Please keep your wounds clean with soap and water. Do not use alcohol or hydrogen peroxide to cleanse your wounds. You should follow-up with wound care. Take all the antibiotics as prescribed. You have been referred on to [facility]. It is imperative that you obtain a primary care provider. Return to the emergency department with worsening or new concerning symptoms of any sort. Prescriptions: Clindamycin HCl 300 mg PO TID #30 capsule Referrals: [facility] [Provider Group] - Follow up as needed
[2020-03-08 04:46] VITALS: BP 116/56
== END 2020-03-08 04:35 | disposition home or self-care (01) ==
LOC: ER 18:02
DX: L97.212 Non-pressure chronic ulcer of right calf with fat layer exposed (principal); L97.222 Non-pressure chronic ulcer of left calf with fat layer exposed; F17.200 Nicotine dependence, unspecified, uncomplicated; R60.0 Localized edema
CPT/HCPCS: 99284; 36415; 87070; 87205; 85025; 87077; 80053; 87186; 73590 ×2; J3490